=== PATIENT | female | born 2000 | race Caucasian/White ===

== ENCOUNTER 2020-08-05 16:00 | Outpatient (RCR) | payer OTHER, SELFPAY ==
--- NOTE | 2020-06-30 17:41 | HMH.PTOPEV ---
PT Outpatient Evaluation Rehab PT Outpatient Evaluation Start: 06/30/20 17:13 Freq: Status: Active Protocol: Document 06/30/20 17:14 KRISTI (Rec: 06/30/20 17:41 [email or web address] [id number]) Electronically Signed By Jeison Joy PT 06/30/20 17:14 Outpatient Therapy Subjective History Subjective History Pt. is a 19 year old female who presents to outpatient PT clinic w/ complaints of chronic and constant thoracic/lumbar P! and intermittent bilateral pectoral P! of insidious onset for 13 years that is getting really bad. Pt. reports I know my poor posture is partial to blame. Pt. does report some symptom relief w/ pain medication at times. Pt . denies having recent diagnostic imaging nor injections for current pathologies. Current medications include control and Zoloft. PMH includes a Tonsillectomy, Appendectomy, borderline diabetic, and an irregular heartbeat. Chief Complaint Pain,Spasms,Stiff Symptom Type Sharp Symptoms Relieved By Heat Symptoms Aggravated By Physical Activity,Walking, Lifting Prior Functional Limitations None Current Functional Limitations Lifting,Housework,Sleeping, Standing,Walking Symptom Description Constant and Continuous Level of pain today (0-10) 5 Pain scale - at its best (0-10) 5 Pain scale - at its worst (0-10) 10 Lumbopelvic Eval Posture Thoracic Spine Posture Standing Position Neutral Lumbar Spine Posture Standing Position Neutral Assistive device Assistive Devices None / NA Gait Observation General Gait Pattern Observation No Deviations/Normal Palapation tenderness bilateral thoracic spinal tenderness Yes: grade 3 +TTP bilateral rhomboid major/minor,levator scap. origination lumbar spinal tenderness Yes: grade 3 +TTP to bilateral lumbar paraspinals/QLs paraspinal tenderness Yes Accessory Movement T10 bilateral T11 bilateral T12 bilateral L2
== END 2020-09-01 17:30 | disposition home or self-care (01) ==
LOC: PT.CARL 16:00
PROVIDERS: PCP Nurse Practitioner Family; Visit Provider Internal Medicine Adolescent Medicine
DX: M54.5 Low back pain (principal); M54.6 Pain in thoracic spine
CPT/HCPCS: 97110; 97163; 97164

== ENCOUNTER → 2021-04-21 12:43 | Outpatient (CLI) | payer OTHER, SELFPAY ==
[2021-04-21 13:15] LABS: Basophils # 0.1 K/mm3 (0-0.2); Basophils % 0.6 % (0.1-2.0); Eosinophils # 0.3 K/mm3 (0.0-0.4); Hematocrit 36.8 % (37.0-47.0); Hemoglobin 11.4 g/dL (12.2-16.2); Lymphocytes # 2.3 K/mm3 (0.7-4.5); Lymphocytes % 27.3 % (10-50); Mean Corpuscular HGB Conc 31.1 g/dL (31.8-35.4); Mean Corpuscular Hemoglobin 24.1 pg (27.0-31.2); Mean Corpuscular Volume 77.3 fl (81-99); Mean Platelet Volume 7.6 fl (7.4-10.4); Monocytes # 0.3 K/mm3 (0.1-1.0); Monocytes % 3.3 % (1.7-9.3); Neutrophils # 5.4 K/mm3 (1.8-7.8); Neutrophils % 64.8 % (37.0-80.0); Platelet Count 480 K/mm3 (142-424); Red Blood Count 4.76 M/mm3 (4.20-5.40); Red Cell Distribution Width 17.8 % (11.5-17.5); White Blood Count 8.3 K/mm3 (4.5-13.0)
[2021-04-21 13:51] LABS: Chloride 104 mmol/L (98-107); Potassium 4.7 mmoL/L (3.5-5.1); Sodium 140 mmol/L (136-145)
[2021-04-21 13:53] LABS: Blood Urea Nitrogen 10 mg/dl (7-17); Estimated Glomerular Filt Rate 157 ml/min (>60); GFR (African American) 190 ML/MIN (>60)
[2021-04-21 13:54] LABS: Alanine Aminotransferase 11 U/L (12-78); Albumin Level 4.3 g/dl (3.5-5.0); Albumin/Globulin Ratio 1.3 (1.1-1.8); Alkaline Phosphatase 91 U/L (38-126); Anion Gap 11.7 mEq/L (5-15); Aspartate Amino Transferase 18 U/L (14-36); Bilirubin,Total 0.2 mg/dl (0.2-1.3); Calcium 9.4 mg/dl (8.4-10.2); Carbon Dioxide 29 mmol/L (22.0-30.0); Cholesterol 158 mg/dl (140-200); Globulin 3.2 g/dL (1.3-3.2); Glucose 94 mg/dl (74-100); Total Protein,Serum 7.5 g/dl (6.3-8.2); Triglycerides 104 mg/dl (30-150); VLDL Cholesterol 21 mg/dL (0-40)
[2021-04-21 13:55] LABS: Chol/HDL Ratio 3.5 (1-3.5); HDL Cholesterol 45 mg/dl (40-60)
[2021-04-21 14:05] LABS: Direct LDL Cholesterol 97.44 mg/dL (100-129)
[2021-04-21 14:24] LABS: Thyroid Stimulating Hormone 1.07 uIU/mL (0.465-4.68)
== END ==
PROVIDERS: Visit Provider Nurse Practitioner Family
DX: Z00.00 Encounter for general adult medical examination without abnormal findings (principal)
CPT/HCPCS: 36415; 80053; 80061; 84443; 85025

== ENCOUNTER → 2021-05-02 07:40 | Outpatient (CLI) | payer OTHER, SELFPAY ==
--- NOTE | 2021-05-02 07:53 | MM_ITS ---
PROCEDURE INFORMATION: Exam: MG Screening 3D Mammography Exam date and time: 05/02/2021 7:53 AM Age: 20 years old Clinical indication: Encounter for screening mammogram for malignant neoplasm of breast; Additional info: Macromastia TECHNIQUE: Imaging protocol: Screening tomosynthesis and 2D mammography including computer-aided detection (CAD) when performed. COMPARISON: No relevant prior studies available. FINDINGS: MAMMOGRAPHY: Breast composition: The breast tissue is composed of scattered areas of fibroglandular density. Mass: None. Architectural distortion: None. Calcifications: No suspicious calcifications. Asymmetric density: None. Skin thickening: None. Axillary adenopathy: None. IMPRESSION: No mammographic evidence of malignancy. ASSESSMENT: BI-RADS Category 1: Negative
== END ==
PROVIDERS: PCP Internal Medicine Adolescent Medicine; Visit Provider Nurse Practitioner Family
DX: N62 Hypertrophy of breast (principal); Z12.31 Encounter for screening mammogram for malignant neoplasm of breast
CPT/HCPCS: 77063; 77067

== ENCOUNTER → 2021-11-30 11:06 | Outpatient (CLI) | payer OTHER, SELFPAY | PROVIDERS: PCP Internal Medicine Adolescent Medicine; Visit Provider Nurse Practitioner | DX: U07.1 COVID-19 (principal) | CPT/HCPCS: C9803; U0003; U0005 ==

== ENCOUNTER 2023-06-02 22:31 | Emergency (ER) | payer OTHER, SELFPAY ==
--- NOTE | 2023-06-02 22:30 | ECG_ITS ---
APPROVED REPORT Exam: Resting ECG HR:88 bpm ECG Measurements Heart Rate 88 AXES ME 155 P 59 QRSd 110 QRS 31 QT 361 T 33 QTc 407 Conclusion SINUS RHYTHM LOW QRS VOLTAGE IN PRECORDIAL LEADS [QRS DEFLECTION < 1.0 mV IN CHEST LEADS] BORDERLINE ECG UNCONFIRMED REPORT Electronically signed by : Yordan Rueda MD 06/04/2023 14:04:42
[2023-06-02 22:31] VITALS: BP 136/87; PULSE 80; RESP 16; TEMP 36.8; O2SAT 100; BMI 33.2
[2023-06-02 22:37] VITALS: BMI 33.2
--- NOTE | 2023-06-02 22:38 | XR_ITS ---
PROCEDURE INFORMATION: Exam: XR Chest Exam date and time: 06/02/2023 10:36 PM Age: 22 years old Clinical indication: Pain; Chest pressure; Additional info: Cp TECHNIQUE: Imaging protocol: Radiologic exam of the chest. Views: 2 views. COMPARISON: No relevant prior studies available. FINDINGS: Lungs: Unremarkable. No consolidation. Pleural spaces: Unremarkable. No pleural effusion. No pneumothorax. Heart/Mediastinum: Unremarkable. No cardiomegaly. Bones/joints: Unremarkable. IMPRESSION: No acute findings.
[2023-06-02 22:43] VITALS: PULSE 80
[2023-06-02 22:45] LABS: Basophils % 0.4 % (0.1-2.0); Eosinophils # 0.2 K/mm3 (0.0-0.4); Eosinophils % 1.8 % (0.1-12.0); Hematocrit 28.6 % (37.0-47.0); Hemoglobin 7.8 g/dL (12.2-16.2); Lymphocytes # 3.2 K/mm3 (0.7-4.5); Lymphocytes % 26.8 % (10-50); Mean Corpuscular HGB Conc 27.1 g/dL (31.8-35.4); Mean Corpuscular Hemoglobin 17.1 pg (27.0-31.2); Mean Corpuscular Volume 63.3 fl (81-99); Mean Platelet Volume 7.3 fl (7.4-10.4); Monocytes # 0.4 K/mm3 (0.1-1.0); Monocytes % 3.7 % (1.7-9.3); Neutrophils % 67.4 % (37.0-80.0); Platelet Count 598 K/mm3 (142-424); Red Blood Count 4.53 M/mm3 (4.20-5.40); Red Cell Distribution Width 21.8 % (11.5-17.5); White Blood Count 11.8 K/mm3 (4.8-10.8)
[2023-06-02 22:51] LABS: Anion Gap 12.3 mEq/L (5-15); Blood Urea Nitrogen 9 mg/dl (7-17); Carbon Dioxide 27 mmol/L (22.0-30.0); Chloride 105 mmol/L (98-107); Creatinine Clearance Estimated 153 mL/min (50-200); Estimated Glomerular Filt Rate 105 ml/min (>60); GFR (African American) 127 ML/MIN (>60); Glucose 98 mg/dl (74-100); Magnesium 1.8 mg/dl (1.6-2.3); Potassium 3.3 mmoL/L (3.5-5.1); Sodium 141 mmol/L (136-145)
[2023-06-02 22:56] LABS: C-Reactive Protein 2.4 mg/L (0-4)
--- NOTE | 2023-06-02 22:59 | HMH.EDCP ---
Discharge Plan Disposition Patient Disposition: Home, Self-Care Prescriptions Prescriptions: No Action Ortho-Novum (28) 0.5/0.75/1 mg- 35 mcg tablet 1 tab PO DAILY quetiapine [Seroquel] 100 mg tablet 100 mg PO HS bupropion HCl [Wellbutrin XL] 150 mg tablet extended release 24 hr 150 mg PO DAILY Referrals Follow up/Referrals: Joshua Alan MD [Primary Care Provider] - See instructions Clinical Impressions Clinical Impression: Iron deficiency anemia, Atypical chest pain Instructions Patient Instructions: DI for Atypical Chest Pain, DI for Iron Deficiency Anemia-Adult Discharge ED Provider: Serina (ED),Rodríguez German Chest Pain HPI General Chief Complaint: Chest Pain Stated Complaint: chest pain Time Seen by Provider: 06/02/23 22:35 Mode of Arrival: EMS Source of Information: Patient, EMS and Medical Record Limitations: No Limitations Description of Symptoms (Recalled from ER Triage Doc. by RN): pt states she ate a cakes with pecans in it @ 3:00 this afternoon. pt c/o lt side chest pain that startes 30 mins prior to arrival. History of Present Illness HPI narrative: pt with reported allergies to nuts and ate pecan earlier now with chest pain - complaint: chest pain indicative of cardiac Onset (ago): hour(s) Duration: intermittent Activity at onset: during rest Pain location: epigastric Severity: moderate Quality: sharp Pain radiation: back Risk Factors for CAD: Family Hx of CAD Treatments prior to or on arrival for Cardiac Chest Pain: none UBALDO Score for Non-Stemi Age of Patient: <30 years old Heart Rate: 70-89 bpm Systolic Blood Pressure: 100-119 mmHg Serum Creatinine: 0.40-0.79 mg/dl CHF [place] Class: I-No CHF Other Risk Factors: None Non-Stemi Risk Score: 56 Risk Stratification: 1-108 = Low Risk Related Data On Oral Contraceptives: Yes Home Medications Medication Instructions Recorded Confirmed bupropion HCl 150 mg 24 hr tablet, 150 mg PO DAILY Depression 06/02/23 06/02/23 extended release (Wellbutrin XL) norethindrone-e.estradiol 1 tab PO DAILY Control 06/02/23 06/02/23 triphasic 0.5 mg/0.75 mg/1 mg-35 mcg tablet (Ortho-Novum 7/7/7 (28)) quetiapine 100 mg tablet (Seroquel) 100 mg PO HS Depression 06/02/23 06/02/23 Allergies Allergy/AdvReac Type Severity Reaction Status Date / Time pecan nut Allergy Verified 06/02/23 22:39 [facility] Disclaimer: The information contained in this section may have been updated after the patient was seen, as this information can be updated by other users. Medical History Anxiety Asthma Depression Schizoaffective disorder Surgical History H/O adenoidectomy History of placement of ear tubes History of tonsillectomy Family History Grandmother Diabetes Grandfather Diabetes Mother Coronary artery disease Social History Smoking Status: Current every day smoker tobacco type: e-cigarettes alcohol intake: never substance use type: marijuana current occupational status: unemployed Travel in the last 8 weeks: None household members: family housing: house ROS Obtained: Yes All systems reviewed & no additional complaints except as documented Physical Exam General General appearance: alert and other (pale ) Head Head exam: normocephalic Eye Eye exam: Present PERRL and EOMI; Absent scleral icterus ENT ENT exam: Present mucous membranes moist Neck Neck exam: Present trachea midline Respiratory Respiratory exam: Present normal lung sounds bilaterally; Absent respiratory distress Cardiovascular Cardiovascular exam: Present regular rate; Absent systolic murmur, rubs, gallop or clicks Abdominal Exam Abdominal exam: Present soft Extremities Exam Extremities exam: Present full ROM Ne
[2023-06-02 23:00] VITALS: BP 133/87; PULSE 82; O2SAT 100
[2023-06-02 23:10] LABS: Free T4 (Free Thyroxine) 1.13 ng/dl (0.78-2.19); Procalcitonin 0.042 ng/mL (0.0-2.0)
[2023-06-02 23:13] LABS: Troponin I < 0.01 ng/ml (0.00-0.034)
[2023-06-02 23:17] LABS: Erythrocyte Sedimentation Rate 32 mm/hr (0-20)
[2023-06-02 23:24] LABS: Thyroid Stimulating Hormone 2.27 uIU/mL (0.465-4.68)
[2023-06-02 23:30] VITALS: BP 120/79; PULSE 79; O2SAT 100
--- NOTE | 2023-06-02 23:38 | PC.NURSE ---
Pt ambulatory to bathroom. Urine sample obtained.
[2023-06-02 23:41] LABS: Microscopic, Urine URINE MICROSCOPIC (MICROSCOPIC)
[2023-06-02 23:45] LABS: Appearance,Urine CLEAR (Clear); Bilirubin,Urine Negative (Negative); Blood, Urine Negative (Negative); Color,Urine YELLOW (Yellow); Glucose,Urine (UA) Negative (Negative); Ketones,Urine Negative (Negative); Leukocyte Esterase,Urine Negative (Negative); Nitrate,Urine Negative (Negative); Protein,Urine Negative (Negative)
[2023-06-02 23:48] LABS: Urine Pregnancy, HCG Qual. Negative (Negative)
--- NOTE | 2023-06-02 23:51 | PC.NURSE ---
Pt provided with water
[2023-06-02 23:58] LABS: Bacteria,Urine Trace /lpf; Squamous Epithelial Cell,Urine Occasional #/hpf (0-5); WBC,Urine Occasional #/hpf (0-3)
--- NOTE | 2023-06-02 23:59 | PC.NURSE ---
Pt family came out of room and advised pt was having really bad pain again RN at BS
--- NOTE | 2023-06-03 00:24 | PC.NURSE ---
Pt had large amount of emesis. Pt cleaned up. RN notified.
[2023-06-03 00:27] VITALS: BP 131/74; PULSE 89; RESP 16; O2SAT 100
--- NOTE | 2023-06-03 00:27 | PC.NURSE ---
Pt ambulatory to bathroom
[2023-06-03 00:30] VITALS: BP 135/75; PULSE 95; RESP 29; O2SAT 100
[2023-06-03 01:00] VITALS: BP 137/82; PULSE 84; RESP 20; O2SAT 100
[2023-06-03 01:31] VITALS: BP 108/72; PULSE 88; RESP 16; O2SAT 98
[2023-06-03 01:34] LABS: Troponin I < 0.01 ng/ml (0.00-0.034)
[2023-06-03 01:38] VITALS: BP 108/72; PULSE 75; RESP 16; TEMP 36.8; O2SAT 100
[2023-06-03 01:57] LABS: Reticulocyte % (Auto) 2.1 % (0.9-3.2)
[2023-06-03 02:00] LABS: Iron 22 ug/dL (37-170)
[2023-06-03 02:09] LABS: Total Iron Binding Capacity 455 ug/dL (265-497)
== END 2023-06-03 01:38 | disposition home or self-care (01) ==
PROVIDERS: Emergency Provider Emergency Medicine; PCP Family Medicine
DX: R07.89 Other chest pain (principal); T78.40XA Allergy, unspecified, initial encounter; D50.9 Iron deficiency anemia, unspecified; F41.9 Anxiety disorder, unspecified; J45.909 Unspecified asthma, uncomplicated; F25.9 Schizoaffective disorder, unspecified; F17.290 Nicotine dependence, other tobacco product, uncomplicated
CPT/HCPCS: 71046; 80048; 81001; 81025; 83540; 83550; 83735; 84145; 84439; 84443; 84484; 85025; 85044; 85651; 86140; 93005; 96361; 96374; 96375; 99285

== ENCOUNTER 2023-06-15 12:41 | Outpatient (CLI) | payer OTHER, SELFPAY ==
[2023-06-15 13:07] VITALS: BP 130/73; PULSE 90; RESP 18; O2SAT 99
[2023-06-15 13:48] VITALS: BP 131/74; PULSE 81; RESP 18; O2SAT 99
== END 2023-06-15 13:50 | disposition home or self-care (01) ==
LOC: INF 12:42
PROVIDERS: PCP Family Medicine; Visit Provider Family Medicine
DX: D50.9 Iron deficiency anemia, unspecified (principal)
CPT/HCPCS: 96365; J1439

== ENCOUNTER 2023-06-22 11:59 | Outpatient (CLI) | payer OTHER, SELFPAY ==
[2023-06-22 12:20] VITALS: BP 114/63; PULSE 72; RESP 14; TEMP 36.4; O2SAT 100
[2023-06-22 12:50] VITALS: BP 128/64; PULSE 87; RESP 16; TEMP 36.6; O2SAT 100
== END 2023-06-22 12:25 | disposition home or self-care (01) ==
LOC: INF 12:00
PROVIDERS: PCP Family Medicine; Visit Provider Family Medicine
DX: D50.9 Iron deficiency anemia, unspecified (principal); D64.9 Anemia, unspecified
CPT/HCPCS: 96365; J1439

== ENCOUNTER → 2023-08-15 06:34 | Outpatient (CLI) | payer OTHER, SELFPAY ==
[2023-08-15 16:57] LABS: Basophils # 0.1 K/mm3 (0-0.2); Basophils % 1.1 % (0.1-2.0); Eosinophils # 0.2 K/mm3 (0.0-0.4); Eosinophils % 3.1 % (0.1-12.0); Hematocrit 45.5 % (37.0-47.0); Hemoglobin 13.9 g/dL (12.2-16.2); Lymphocytes # 2.1 K/mm3 (0.7-4.5); Lymphocytes % 33.3 % (10-50); Mean Corpuscular HGB Conc 30.5 g/dL (31.8-35.4); Mean Corpuscular Hemoglobin 26.6 pg (27.0-31.2); Mean Corpuscular Volume 87.2 fl (81-99); Mean Platelet Volume 9.5 fl (7.4-10.4); Monocytes # 0.3 K/mm3 (0.1-1.0); Monocytes % 5.1 % (1.7-9.3); Neutrophils # 3.6 K/mm3 (1.8-7.8); Neutrophils % 57.5 % (37.0-80.0); Platelet Count 379 K/mm3 (142-424); Red Blood Count 5.22 M/mm3 (4.20-5.40); Red Cell Distribution Width 23.3 % (11.5-17.5); White Blood Count 6.2 K/mm3 (4.8-10.8)
--- OUTSIDE RECORDS SUMMARY | 2023-08-29 06:36 | XMS_ITS | Patient Health Record ---
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 Name Role Phone Yordan Rueda Primary Care Provider [phone] Sydni Borja Unavailable [phone] ALLERGIES Allergen (clinical drug ingredient) Drug/Non Drug Allergy documented on EMR Reaction Allergy Type Onset Date Status pecans (uncoded) Unknown Allergy Act kelly MEDICATIONS Medication SIG (Take, Route, Frequency, Duration) Notes Start Date End Date Status Vraylar 3 mg 1 cap(s) orally once a day Active HydrOXYzine Pamoate pamoate 25 mg 1 cap(s) orally every 12 hours prn for 30 day(s) Active Ventolin HFA 90 mcg/inh 2 puff(s) inhale d 4 times a day PRN for 30 day(s) Active Cryselle 28 30 mcg-0.3 mg 1 tab(s) orall y once a day for 28 days Active Flonase 50 mcg/inh 1 spray(s) in each nostril once a day for 30 day(s) 07/18/2021 Active Zofran 4 mg 1 tab(s) orally ever y 8 hours as needed for 5 days 05/10/2021 Active ibuprofen 600 mg 1 tab(s) orally 3 ti mes a day as needed for menstrual cramps for 30 days prn 11/24/2020 Active IM
== END ==
PROVIDERS: PCP Family Medicine; Visit Provider Family Medicine
DX: D50.9 Iron deficiency anemia, unspecified (principal); F25.9 Schizoaffective disorder, unspecified
CPT/HCPCS: 85025